=== PATIENT | female | born 1990 | race African-American/Black ===

== ENCOUNTER 2017-02-26 16:28 | Emergency (ER) | payer MEDICAID ==
[~2017-02-26] VITALS: Ht 160 cm; Wt 85.0 kg
[2017-02-26 16:30] VITALS: BP 130/88
== END 2017-02-26 23:40 | disposition left against medical advice (07) ==
LOC: ER 16:42
DX: Z04.3 Encounter for examination and observation following other accident (principal); M25.511 Pain in right shoulder; R51 Headache; Z53.21 Procedure and treatment not carried out due to patient leaving prior to being seen by health care provider

== ENCOUNTER 2018-03-09 15:54 | Emergency (ER) | payer MEDICAID ==
[~2018-03-09] VITALS: Ht 160 cm; Wt 65.0 kg
[2018-03-09 15:56] VITALS: BP 117/53
[2018-03-09 18:58] LABS: HEMATOCRIT. 34.7 % (36.0-48.0); HEMOGLOBIN. 11.1 g/dL (12.0-16.0); MEAN CORPUSCULAR HEMOGLOBIN 21.4 pg (28.0-32.0); MEAN CORPUSCULAR VOLUME 66.8 fL (81.0-99.0); MEAN PLATELET VOLUME 10.4 fl (7.4-10.4); PLATELET 239 x1000/uL (130-400); RED BLOOD CELL COUNT 5.19 mill/uL (4.2-5.4); RED CELL DISTRIBUTION WIDTH 15.6 % (11.6-14.6)
[2018-03-09 19:03] LABS: CHLORIDE 103 mEq/L (98-107)
[2018-03-09 19:04] LABS: INR 1.2; PROTHROMBIN TIME 12.7 sec (9.4-11.6)
[2018-03-09 19:13] LABS: HCG SCREEN NEGATIVE
[2018-03-09 21:24] LABS: PLATELET ESTIMATE NORMAL
== END 2018-03-10 | disposition left against medical advice (07) ==
LOC: ER 16:23
DX: R10.30 Lower abdominal pain, unspecified (principal); N39.0 Urinary tract infection, site not specified
CPT/HCPCS: 36415; 80053; 83690; 84703; 85025; 85610; 99284